=== PATIENT | female | born 1955 | race Caucasian/White ===

== ENCOUNTER 2025-04-24 10:15 | Outpatient (RCR) | payer MEDICARE, OTHER, SELFPAY ==
--- NOTE | 2025-03-08 07:48 | ONC.NURNOTE ---
Dx: lymph node cancer
== END 2025-08-27 23:59 | disposition home or self-care (01) ==
LOC: CCIC 10:15
PROVIDERS: Visit Provider Clinical Nurse Specialist
DX: C96.9 Malignant neoplasm of lymphoid, hematopoietic and related tissue, unspecified (principal)
CPT/HCPCS: 99211